=== PATIENT | female | born 1975 | race Caucasian/White ===

== ENCOUNTER → 2018-12-23 | Outpatient (CLI) | payer BC | END | disposition home or self-care (01) | LOC: LAB SHORT 09:10 → OLS 09:10 → LAB FUT 12-22 12:10 | DX: B83.9 Helminthiasis, unspecified (principal); R14.0 Abdominal distension (gaseous); R10.9 Unspecified abdominal pain | CPT/HCPCS: 87177; 87209 ==

== ENCOUNTER → 2018-12-24 | Outpatient (CLI) | payer BC | END | disposition home or self-care (01) | LOC: LAB SHORT 09:30 → OLS 09:30 | DX: B83.9 Helminthiasis, unspecified (principal); R10.9 Unspecified abdominal pain; R14.0 Abdominal distension (gaseous) | CPT/HCPCS: 87177; 87209 ==

== ENCOUNTER → 2018-12-25 | Outpatient (CLI) | payer BC | END | disposition home or self-care (01) | LOC: LAB SHORT 10:00 → OLS 10:00 | DX: R14.0 Abdominal distension (gaseous) (principal); R10.9 Unspecified abdominal pain; B83.9 Helminthiasis, unspecified | CPT/HCPCS: 87177; 87209 ==